=== PATIENT | female | born 1950 | race Caucasian/White ===

== ENCOUNTER 2017-01-26 18:42 | Observation (INO) ==
--- NOTE | 2017-01-26 19:59 | Emergency Department Note ---
Disposition Clinical Impression: Syncope Qualifiers: Syncope type: unspecified Qualified Code(s): R55 - Syncope and collapse Leukocytosis Qualifiers: Leukocytosis type: unspecified Qualified Code(s): D72.829 - Elevated white blood cell count, unspecified Disposition: Admitted As Inpatient Condition: Fair Seizure HPI - General Chief Complaint: ED Seizure Stated Complaint: seizure Time Seen by Provider: 01/26/17 18:59 Source: patient, EMS Mode of arrival: ambulatory Limitations: no limitations Nursing Notes Reviewed: Yes Vital Signs Reviewed: Yes - History of Present Illness HPI Narrative: 66-year-old female presents for evaluation of "possible seizure". Patient does have a history of left-sided breast cancer status post lumpectomy and lymph node dissection that is been remission since 2011. Family describes an episode where the patient is sitting at the family table. Patient became unresponsive slumping over in her chair with her head bobbing. No rhythmic shaking of the extremities. Symptoms lasted for approximately 45 minutes and the patient was brought to the ground. Patient did have an episode of urinary incontinence as well as vomiting and diaphoresis. Patient denies any specific prodrome prior to the episode. Denies any recent illnesses. No chest pain or short of breath. No abdominal pain nausea vomiting. Patient did have some episodes of confusion and was not aware of the event immediately upon awakening. No recent changes in medications or new medications. Pt Subjective Complaint: possible seizure Onset (ago): hour(s) Description of Episode: loss of consciousness, bladder incontinence - Related Data Home Medications Medication Instructions Recorded Confirmed Lisinopril [Zestril] 5 mg PO DAILY 01/26/17 01/26/17 Allergies Allergy/AdvReac Type Severity Reaction Status Date / Time No Known Allergies Allergy Verified 09/07/16 11:06 All systems ED: reviewed and negative except as stated. Constitutional: Reports: as per HPI. Denies: fever Eyes: Reports: as per HPI ENT ED: Reports: as per HPI Cardiovascular: Reports: as per HPI. Denies: chest pain, palpitations Respiratory: Reports: as per HPI. Denies: cough, dyspnea Gastrointestinal: Reports: as per HPI. Denies: abdominal pain, nausea, vomiting Genitourinary: Reports: as per HPI Musculoskeletal: Reports: as per HPI Integumentary: Reports: as per HPI Neurological: Reports: as per HPI. Denies: headache, weakness, numbness Psychiatric: Reports: as per HPI Endocrine: Reports: as per HPI Hematological/Lymphatic: Reports: as per HPI Allergic/Immunologic: Reports: as per HPI Past Medical History - Past Medical History Medical history: Reports: hypertension - Social History Smoking Status: Never smoker Smokeless Tobacco Status: No Alcohol use: Reports: none Physical Exam - General Limitations: no limitations General appearance: alert, in no apparent distress - Head Head exam: atraumatic, normocephalic, normal inspection - Eye Eye exam: Present: normal appearance, EOMI - ENT ENT exam: normal exam, normal oropharynx, mucous membranes moist - Expanded ENT Exam External ear exam: Present: normal external inspection Mouth exam: Present: tongue normal (No tongue biting) - Neck Neck exam: Present: normal inspection, trachea midline, other (Right supraclavicular fatty mass that the patient states is been stable and monitored) - Chest Chest inspection: Present: normal inspection - Respiratory Respiratory exam: Present: normal lung sounds bilaterally. Absent: respiratory distress - Cardiovascular Cardiovascular exam: Present: regular rate, normal rhythm - Abdominal Exam Abdominal exam: Present: soft, Non-Tender - Extremities Exam Extremities exam: Present: normal inspection. Absent: pedal edema - Expanded Upper Extremity Exam Shoulder exam: Present: normal inspection Arm exam: Present: normal inspection Elbow exam: Present: normal inspection Forearm/Wrist exam: Present: normal inspection Hand exam: Present: normal inspection Vascular exam: Normal: capillary refill, radial pulse - Expanded Lower Extremity Exam Hip/Pelvis exam: Present: normal inspection Upper leg exam: Present: normal inspection Knee exam: Present: normal inspection Lower leg exam: Present: normal inspection Ankle exam: Present: normal inspection - Back Exam Back exam: Present: normal inspection - Neurological Exam Neurological exam: Present: alert, oriented X3, CN II-XII intact - Expanded Neurological Exam Patient oriented to: Present: person, place, time Speech: Present: fluid speech Cranial nerves: EOM function (II, III, IV, ): Normal, facial sensation (V): Normal, facial palsy (VII): Normal, spinal accessory function (XI): Normal, tongue deviation (XII): Normal Cerebellar function: finger to nose: Normal Motor strength - LUE: 5/5 Motor strength - RUE: 5/5 Motor strength - LLE: 5/5 Motor strength - RLE: 5/5 - Psychiatric Psychiatric exam: Present: normal affect, normal mood - Skin Skin exam: Present: warm, dry, intact, normal color Course Course Narrative: Patient seen and examined. Patient's vitals are stable. Patient will get a syncope workup which includes a head CT, EKG, troponin basic lab work. Patient has a nonfocal neurologic exam. - Reevaluation(s) Reevaluation #1: Patient is resting comfortably in no acute distress. Patient's lab work reviewed. Awaiting patient's urinalysis. Time: 21:11 Reevaluation #2: Seen and examined. Patient is in no acute distress. Patient resting it comfortably. Update family on plan of care. Time: 22:09 Vital Signs Temperature 98.0 F 01/26/17 18:53 Pulse Rate 105 01/26/17 18:53 Respiratory Rate 18 01/26/17 18:53 Blood Pressure 145/89 01/26/17 18:53 O2 Sat by Pulse Oximetry 98 01/26/17 18:53 Temperature 97.8 F 01/27/17 01:39 Pulse Rate 85 01/27/17 01:39 Respiratory Rate 16 01/27/17 01:39 Blood Pressure 102/65 01/27/17 01:39 O2 Sat by Pulse Oximetry 95 01/27/17 02:00 Oxygen Delivery Oxygen Delivery Room Air Seizure - MDM Narrative Medical decision making narrative: 66-year-old female with a remote history of left-sided breast cancer in remission presents for evaluation of possible seizure. However after listening to the patient's family described the episode it appears that is more syncopal related. Occurred prior to arrival was sitting dinner table. Does note loss of consciousness and not responding for approximately 4-5 minutes with what appeared to be head-bobbing. No rhythmic jerking of the extremities bilateral. No tongue biting. No significant prodrome prior to. Patient denied chest pain or shortness of breath. Patient did have an episode of urinary incontinence as well as emesis following the incident with brief confusion about the episode following. Patient had basic lab work which included a CBC electrolytes troponin as well as a d-dimer. Patient labs do show leukocytosis which is likely stress-induced margination Patient's chest x-ray as well as head CT shows no acute abdomen. Patient's EKG is also non-acute. Patient will be admitted to the hospital service for further evaluation and monitoring. It appears more syncope related. Patient does not demonstrate any infectious symptoms that would be concerning for meningitis. No fevers. No headache. Patient's cranial nerves are grossly intact without nuchal rigidity or signs of meninges. Patient will be admitted to the telemetry floor. - Medical Records Medical records reviewed: Yes I reviewed the patient's medical records. - Lab Data Lab results reviewed: Yes I reviewed the patient's lab results. Result diagrams: 01/26/17 20:29 01/26/17 20:29 Lab Results 01/26/17 01/26/17 01/26/17 Range/Units 20:29 20:29 20:29 WBC 15.6 H (4.3-11.1) K/mcL RBC 4.54 (3.82-4.97) M/mcL Hgb 13.7 (11.5-15.4) g/dL Hct 42.3 (35.3-44.9) % MCV 93.2 (83.0-100.0) fL MCH 30.2 (28.0-33.3) pg MCHC 32.4 (31.6-35.5) g/dL RDW 12.8 (11.5-14.5) % Plt Count 238 (140-400) K/mcL MPV 10.7 (9.4-12.4) fL Immature Gran % 0.4 (0-4) % Seg Neutrophils % 84.0 % Lymphocytes % 8.4 % Monocytes % 6.6 % Eosinophils % 0.1 % Basophils % 0.5 % Neutrophils # 13.1 H (1.6-8.9) K/mcL Lymphocytes # 1.3 (0.6-4.6) K/mcL Monocytes # 1.0 (0.0-1.3) K/mcL Eosinophils # 0.0 (0.0-0.6) K/mcL Basophils # 0.1 (0.0-0.2) K/mcL D-Dimer (0-500) ng/mLFEU Sodium 140 (136-145) mEq/L Potassium 3.9 (3.5-4.5) mEq/L Chloride 100 (98-109) mEq/L Carbon Dioxide 31 H (19-29) mEq/L BUN 16 (7-20) mg/dL Creatinine 0.78 (0.57-1.11) mg/dL Est GFR ( Amer) > 60 (> 60) Est GFR (Non-Af Amer) > 60 (> 60) BUN/Creatinine Ratio 21 (6-26) Glucose 103 H (70-99) mg/dL Calculated Osmolality 291 (280-300) Calcium 9.9 (8.6-10.8) mg/dL Phosphorus 3.8 (2.3-4.7) mg/dL Magnesium 2.2 (1.6-2.6) mg/dL Total Bilirubin 0.4 (0.2-1.2) mg/dL AST 15 (5-34) Units/L ALT 14 (0-55) Units/L Alkaline Phosphatase 67 (38-126) Units/L Troponin I 0.00 (0-0.03) ng/mL Serum Total Protein 7.6 (6.0-8.3) g/dL Albumin 4.0 (3.5-5.0) g/dL Globulin 3.6 H (2.4-3.5) g/dL Albumin/Globulin Ratio 1.1 (1.1-2.2) Urine Color (Yellow) Urine Clarity (Clear) Urine pH (5.0-8.0) pH Units Ur Specific [place] (1.010-1.025) Urine Protein (Neg-Trace) mg/dL Urine Glucose (UA) (Normal) mg/dL Urine Ketones (Negative) mg/dL Urine Blood (Negative) Urine Nitrite (Negative) Urine Bilirubin (Negative) Urine Urobilinogen (Normal) mg/dL Ur Leukocyte Esterase (Negative) Urine Microscopic RBC (0-3) per hpf Urine Microscopic WBC (0-3) per hpf Ur Squamous Epith Cells (None-Few) per lpf Urine Bacteria (None-Few) per hpf Hyaline Casts (None-Few) per lpf Urine Opiates Screen (Rstrzd=413) ng/mL Ur Barbiturates Screen (Btawcp=341) ng/mL Ur Phencyclidine Scrn (Cutoff=25) ng/mL Ur Amphetamines Screen (Yqhsoc=2402) ng/mL U Benzodiazepines Scrn (Ztlmbk=330) ng/mL Urine Cocaine Screen (Cutoff= 300) ng/mL U Marijuana (THC) Screen (Cutoff = 50) ng/mL 01/26/17 01/26/17 01/26/17 Range/Units 20:29 21:17 21:17 WBC (4.3-11.1) K/mcL RBC (3.82-4.97) M/mcL Hgb (11.5-15.4) g/dL Hct (35.3-44.9) % MCV (83.0-100.0) fL MCH (28.0-33.3) pg MCHC (31.6-35.5) g/dL RDW (11.5-14.5) % Plt Count (140-400) K/mcL MPV (9.4-12.4) fL Immature Gran % (0-4) % Seg Neutrophils % % Lymphocytes % % Monocytes % % Eosinophils % % Basophils % % Neutrophils # (1.6-8.9) K/mcL Lymphocytes # (0.6-4.6) K/mcL Monocytes # (0.0-1.3) K/mcL Eosinophils # (0.0-0.6) K/mcL Basophils # (0.0-0.2) K/mcL D-Dimer 1296 H (0-500) ng/mLFEU Sodium (136-145) mEq/L Potassium (3.5-4.5) mEq/L Chloride (98-109) mEq/L Carbon Dioxide (19-29) mEq/L BUN (7-20) mg/dL Creatinine (0.57-1.11) mg/dL Est GFR ( Amer) (> 60) Est GFR (Non-Af Amer) (> 60) BUN/Creatinine Ratio (6-26) Glucose (70-99) mg/dL Calculated Osmolality (280-300) Calcium (8.6-10.8) mg/dL Phosphorus (2.3-4.7) mg/dL Magnesium (1.6-2.6) mg/dL Total Bilirubin (0.2-1.2) mg/dL AST (5-34) Units/L ALT (0-55) Units/L Alkaline Phosphatase (38-126) Units/L Troponin I (0-0.03) ng/mL Serum Total Protein (6.0-8.3) g/dL Albumin (3.5-5.0) g/dL Globulin (2.4-3.5) g/dL Albumin/Globulin Ratio (1.1-2.2) Urine Color Yellow (Yellow) Urine Clarity Cloudy A (Clear) Urine pH 6.5 (5.0-8.0) pH Units Ur Specific [place] 1.028 H (1.010-1.025) Urine Protein 30 H (Neg-Trace) mg/dL Urine Glucose (UA) Normal (Normal) mg/dL Urine Ketones Trace H (Negative) mg/dL Urine Blood Negative (Negative) Urine Nitrite Negative (Negative) Urine Bilirubin Small H (Negative) Urine Urobilinogen Normal (Normal) mg/dL Ur Leukocyte Esterase Small H (Negative) Urine Microscopic RBC 0-3 (0-3) per hpf Urine Microscopic WBC 5-15 H (0-3) per hpf Ur Squamous Epith Cells Many H (None-Few) per lpf Urine Bacteria None Seen (None-Few) per hpf Hyaline Casts None Seen (None-Few) per lpf Urine Opiates Screen Negative (Tqvayu=871) ng/mL Ur Barbiturates Screen Negative (Xoebgv=772) ng/mL Ur Phencyclidine Scrn Negative (Cutoff=25) ng/mL Ur Amphetamines Screen Negative (Pnjvjg=3043) ng/mL U Benzodiazepines Scrn Negative (Xatzjo=222) ng/mL Urine Cocaine Screen Negative (Cutoff= 300) ng/mL U Marijuana (THC) Screen Positive H (Cutoff = 50) ng/mL - Radiology Data Radiology results reviewed: Yes I reviewed the patient's radiology results. Chest X-Ray 01/26/17 19:56 IMPRESSION: No acute process. D/ / Armand Bridges MD / Armand Bridges MD Interpreting Provider: Armand Bridges MD Head CT 01/26/17 19:57 IMPRESSION: No acute intracranial abnormality. D/ / Armand Bridges MD / Armand Bridges MD Interpreting Provider: Armand Bridges MD - EKG Data EKG attestation: Yes I reviewed and interpreted this EKG. EKG shows normal: sinus rhythm Rate: normal Rhythm: NSR [place]/QRS: normal Q waves: II, III, aVF QTc: other (388) Interpretation: no acute changes S.B.A.R. - S.B.A.R. Situation: Demographics Background: Presenting Complaint Assessment: Vital Signs, Course and respsone to treatment, Patient/Family Expectation Recommendation: Barrier(s) to disposition, Recommendation based on pending studies, treatments, or consults S.B.A.R. Report Given to: Dr. Jesus Kate Repor Time: 23:16 Attestation Statement - Attestation Attestation: I, Sim Vanessa, examined this patient and my medical decision-making was reviewed with the POLICY VALUE CALCULATOR/PA/Advanced Practice Nurse/Resident Physician. I agree with the documented findings, disposition and treatment plan as described except to the extent set forth below. Cc-year-old female presents for concerns for evaluation of possible seizure versus syncope. Patient had finished eating and was sitting at the table when she suddenly started to afford and was unresponsive per the family. Family states they laid her down to the ground and she did not hit her head. No other trauma in the recent past. Patient denies changing her medications. Patient denies chest pain, shortness of breath, palpitations. Is unable to provide a history regarding what had happened. Initial troponin negative. D-dimer elevated. CTA of the chest negative for PE or other pathology. EKG showed normal sinus rhythm with rate of 91 without evidence of STEMI. Patient will be admitted to the hospital for further evaluation of possible syncope versus seizure
[2017-01-26 20:41] LABS: Basophils # 0.1 K/mcL (0.0-0.2); Basophils % 0.5 %; Eosinophils % 0.1 %; Hematocrit 42.3 % (35.3-44.9); Hemoglobin 13.7 g/dL (11.5-15.4); Immature Granulocytes % 0.4 % (0-4); Lymphocytes # 1.3 K/mcL (0.6-4.6); Lymphocytes % 8.4 %; Mean Corpuscular HGB Conc 32.4 g/dL (31.6-35.5); Mean Corpuscular Hemoglobin 30.2 pg (28.0-33.3); Mean Corpuscular Volume 93.2 fL (83.0-100.0); Mean Platelet Volume 10.7 fL (9.4-12.4); Monocytes % 6.6 %; Neutrophils # 13.1 K/mcL (1.6-8.9); Platelet Count 238 K/mcL (140-400); Red Blood Count 4.54 M/mcL (3.82-4.97); Red Cell Distribution Width 12.8 % (11.5-14.5)
[2017-01-26 20:56] LABS: Alanine Aminotransferase 14 Units/L (0-55); Albumin/Globulin Ratio 1.1 (1.1-2.2); Alkaline Phosphatase 67 Units/L (38-126); Aspartate Amino Transferase 15 Units/L (5-34); BUN/Creatinine Ratio 21 (6-26); Bilirubin,Total 0.4 mg/dL (0.2-1.2); Blood Urea Nitrogen 16 mg/dL (7-20); Calcium 9.9 mg/dL (8.6-10.8); Carbon Dioxide 31 mEq/L (19-29); Chloride 100 mEq/L (98-109); Globulin 3.6 g/dL (2.4-3.5); Glucose 103 mg/dL (70-99); Magnesium 2.2 mg/dL (1.6-2.6); Osmolality,Calculated 291 (280-300); Phosphorous 3.8 mg/dL (2.3-4.7); Potassium 3.9 mEq/L (3.5-4.5); Sodium 140 mEq/L (136-145); Total Protein 7.6 g/dL (6.0-8.3); eGFR For African Americans > 60 (> 60); eGFR For Non-African Americans > 60 (> 60)
[2017-01-26 21:28] LABS: Bilirubin,Urine Small (Negative); Blood,Urine Negative (Negative); Clarity,Urine Cloudy (Clear); Color,Urine Yellow (Yellow); Glucose,Urine (UA) Normal (Normal); Ketones,Urine Trace mg/dL (Negative); Leukocyte Esterase,Urine Small (Negative); Nitrite,Urine Negative (Negative); PH,Urine 6.5 pH Units (5.0-8.0); Protein,Urine 30 mg/dL (Neg-Trace); Specific Gravity,Urine 1.028 (1.010-1.025); Urobilinogen,Urine Normal (Normal)
[2017-01-26 21:30] LABS: Amphetamine Screen,Urine Negative ng/mL (Cutoff=1000); Barbiturate Screen,Urine Negative ng/mL (Cutoff=200); Benzodiazepines Screen,Urine Negative ng/mL (Cutoff=200); Cannabinoid Screen,Urine Positive ng/mL (Cutoff = 50); Cocaine Screen,Urine Negative ng/mL (Cutoff= 300); Opiate Screen,Urine Negative ng/mL (Cutoff=300); Phencyclidine Screen,Urine Negative ng/mL (Cutoff=25)
[2017-01-26 21:32] LABS: Bacteria,Urine None Seen per hpf (None-Few); Hyaline Casts,Urine None Seen per lpf (None-Few); Squamous Epithelial Cell,Urine Many per lpf (None-Few)
[2017-01-26 21:43] LABS: RBC,Urine 0-3 per hpf (0-3)
--- NOTE | 2017-01-27 01:24 | Internal Med History&Physical ---
Date of Encounter: 01/27/17 Time of Encounter: 01:24 Assessment and Plan (1) Syncope Current visit: Yes Status: Acute pt with no prior history of seizure, CVA or family history of seizure comes in with signs and symptoms concerning for seizure, other differentials could be an arrhythmia vs symptomatic heart block, head CT was unremarkable, EKG was NSR with no blocks or conduction delays, we will get an EEG, telemonitor and get neurology to weigh in, meanwhile we will observe fall, aspirations, and seizure precautions Qualifiers: Syncope type: unspecified Qualified Code(s): R55 - Syncope and collapse (2) HTN (hypertension) Current visit: Yes Status: Chronic she is controlled on lisinopril at home which we will continue with BP monitoring Qualifiers: Hypertension type: essential hypertension Qualified Code(s): I10 - Essential (primary) hypertension Internal Medicine - H&P: HPI Chief complaint: passed out Admitted From: Emergency Dept Plans for Post Hospital Care: Home History of present illness: Ms. Kothari is a 66 year old female with no prior history of CVA or seizure or any heart problems was brought in after passing out at home. She was in her usual state of health until she slumped over in her chair on 01/26/17 and was out for about 4-5 minutes, was unresponsive at that time. She was later laid down on the floor and the EMS was called and she was brought here. She denies any prodrome, no preceding headache, nausea or vomiting, diaphoresis, chest pain or trauma. She reports that after she came to she could not recall events during that period, she was also unaware of events during that period. She however felt nauseous, was diaphoretic and warm after she regained consciousness. There was no report of twitching or stool incontinence but she had urinary incontinence. Past Med Surg Social Fam HX - Past Medical History Medical history: cancer (right breast s/p surgery and radiation in 2012), hypertension - Past Surgical History Surgical History: breast surgery (right lumpectomy for breast cancer) - Social History Smoking Status: Former smoker Packs per day: smoked 1ppd for about 10 years and quit about 5 years ago Smokeless Tobacco Status: No Alcohol use: none Current living situation: Home - Independent Activity Level: Independent ambulation Additional social history: she is and lives at home with her family - Additional Family History Additional family history: father in his later 30's of a massive [place], he also had HTN, mother is also , she had HTN and myasthenia gravis, no family history of seizures Internal Medicine - H&P: Meds Lisinopril [Zestril] 5 mg PO DAILY 01/26/17 [History] Allergies No Known Allergies Allergy (Verified 09/07/16 11:06) All Systems PM: A 10-system review of systems was performed and is negative for pertinent findings except as documented above in the HPI. - Constitutional Vitals: Temp Pulse Resp BP Pulse Ox 98.0 F 97 18 0/0 98 01/26/17 18:53 01/26/17 21:19 01/27/17 00:02 01/27/17 00:02 01/26/17 21:19 PHYSICAL EXAMINATION: GENERAL: Adult female, lying in bed with no sign of distress, awake and alert, makes good eye contact HEENT: NC/AT, EOMI, PERRLA, anicteric sclera, normal conjunctiva, supple, clear nares, moist mucous membranes, clear oropharynx, central uvula RESP: no chest wall tenderness with palpation, lungs are clear to auscultation bilaterally, good AE bilaterally, No crackles or wheeze CARDIO: normal heart sounds, no murmurs, no JVD, no ankle edema GI: Soft, full, no tenderness, no organomegaly felt, normal bowel sounds heard MUSCULOSKELETAL: grossly normal movements bilaterally, no deformities noted, no calf tenderness NEUROLOGIC: CN 2-12 intact grossly. No motor/sensory deficit appreciated, PSYCHIATRY: AAO x 3, SKIN: no rash noted Internal Med - H&P Results - Labs CBC & Chem 7: 01/26/17 20:29 01/26/17 20:29 - EKG Data -: EKG Interpreted by Myself EKG shows normal: sinus rhythm Rate: normal - EKG Data Prior EKG available for review: no - Diagnostic Studies Chest x-ray Status: image reviewed by me CT scan - head Status: image reviewed by me CT scan - chest Status: image reviewed by me
[2017-01-27] MEDS ORDERED: Naloxone 0.4 MG/ML INJ IVP PRN (01:57)
--- NOTE | 2017-01-27 09:40 | Neurology - Consult Note ---
<Grant Patel - Last Filed: 01/27/17 09:49> Date of Encounter: 01/27/17 Time of Encounter: 09:20 Assessment and Plan (1) Syncope Current Visit: Yes Status: Acute No previous history of seizures. No muscle contractions present during described episode. CT of the head was negative for acute intracranial abnormality. Agree with EEG. Positive for marijuana. Differential includes arrhythmia, dehydration, vasovagal, unlikely seizure. Elevated WBC. No obvious signs of infection at this time. Possible stress reaction. The patient has no nuchal rigidity and denies headaches. Qualifiers: Syncope type: unspecified Qualified Code(s): R55 - Syncope and collapse History of Present Illness Chief complaint: Unresponsive episode HPI: Ms. Kothari is a 66 year old female with PMH of breast cancer and hypertension who reported to [facility] after she had an unresponsive episode yesterday evening around 6PM. The who was present in the room provides some additional history. He states that they had just eaten dinner and were sitting around the living room when his stopped responding to him. Her eyes were open and she slumped down into her chair. Her head was slowly moving from side to side. There was no contractions or jerking movements present. He lowered her out of her chair and onto the floor. She then lost bladder control. After 4-5 minutes she was responding again, but became nauseous and vomited X1. She denies ever having anything like this happen before. She denies any history of seizures in the past. She denies starting any new medications or supplements. She was positive for marijuana upon toxicology in the ER, but she states she is a chronic user and has not changed suppliers or any of her usage recently. Further workup demonstrated NSR on EKG without any arrhythmias. CT of the head demonstrated no acute intracranial abnormality. CTA of the chest was negative for PE. The patient denied any symptoms prior to her episode of unresponsiveness. She cannot recall the episode. She denies chest pain, fever, headache, neck pain, cough, shortness of breath, dysuria, change in urinary frequency, and diarrhea. She additionally denies any skin rashes or sores. Past Med Surg Social Fam HX - Past Medical History Medical history: cancer (right breast s/p surgery and radiation in 2011), hypertension Psychiatric history: no psych history - Past Surgical History Surgical History: breast surgery (right lumpectomy for breast cancer) - Social History Smoking Status: Former smoker Packs per day: smoked 1ppd for about 10 years and quit about 5 years ago Smokeless Tobacco Status: No Alcohol use: none Drug use: none Medications and Allergies Lisinopril [Zestril] 5 mg PO DAILY 01/26/17 [History] Allergies No Known Allergies Allergy (Verified 09/07/16 11:06) All Systems: A 10-system review of systems was performed and is negative for pertinent findings except as documented above in the HPI. Physical Examination - Vital Signs Vital Signs: Initial Vital Signs Temp Pulse Resp BP Pulse Ox 98.0 F 105 18 145/89 98 01/26/17 18:53 01/26/17 18:53 01/26/17 18:53 01/26/17 18:53 01/26/17 18:53 - Constitutional General appearance: comfortable - Neurologic Sensorimotor examination: intact Detailed motor examination: grossly full strength in all extremities, full strength in all major muscle groups Detailed sensory examination: intact Reflexes: Biceps: 2+, Triceps: 2+, Patella: 2+, Achilles: 2+ Mental Status Examination: awake, alert, oriented to person, oriented to place, oriented to time, follows commands appropriately, answers questions appropriately, makes eye contact Cranial nerve examination: PERRL, EOMI, visual ortiz intact, corneal reflexes brisk symmetrically, sensory to face intact, mastication intact, no facial asymmetry is present, no dysarthria, hearing is intact symmetrically, soft palate elevates bilaterally upon phonation, flexes SCM and trapezius muscles symmetrically with full power, tongue protrudes midline, no atrophy or facial fasiculations present Cerebellar examination: no dysmetria, performs finger to nose and heel to meyer symmetrically without ataxia, no gait ataxia, no difficulty with rapid alternating movements Results - Laboratory Findings CBC and BMP: 01/26/17 20:29 01/26/17 20:29 Abnormal lab findings: Abnormal lab results WBC 15.6 K/mcL (4.3-11.1) H 01/26/17 20:29 Neutrophils # 13.1 K/mcL (1.6-8.9) H 01/26/17 20:29 D-Dimer 1296 ng/mLFEU (0-500) H 01/26/17 20:29 Carbon Dioxide 31 mEq/L (19-29) H 01/26/17 20:29 Glucose 103 mg/dL (70-99) H 01/26/17 20:29 Globulin 3.6 g/dL (2.4-3.5) H 01/26/17 20:29 Urine Clarity Cloudy (Clear) A 01/26/17 21:17 Ur Specific [place] 1.028 (1.010-1.025) H 01/26/17 21:17 Urine Protein 30 mg/dL (Neg-Trace) H 01/26/17 21: Urine Ketones Trace mg/dL (Negative) H 01/26/17 21:17 Urine Bilirubin Small (Negative) H 01/26/17 21: Ur Leukocyte Esterase Small (Negative) H 01/26/17 21: Urine Microscopic WBC 5-15 per hpf (0-3) H 01/26/17 21:17 Ur Squamous Epith Cells Many per lpf (None-Few) H 01/26/17 21: U Marijuana (THC) Screen Positive ng/mL (Cutoff = 50) H 01/26/17 21:17 Consult Discharge Plan - Plan Referrals: Cyndi Guy, INSTALLATION COORDINATOR [Primary Care Provider] - <lEliot Meek - Last Filed: 01/27/17 16:03> Date of Encounter: 01/27/17 Assessment and Plan (1) Syncope Current Visit: Yes Status: Acute I agree as stated above. Patient's neurologic examination and neuroimaging are completely negative. In lieu of the abrupt onset of the event, absence of generalized tonic-clonic activity, and associated vomiting. I would suspect he would do dealing with either a vasovagal event or a primary cardiogenic event. At this point I think we can forego the EEG. I will consider cardiac evaluation. You may discharge her at your discretion. Qualifiers: Syncope type: unspecified Qualified Code(s): R55 - Syncope and collapse History of Present Illness HPI: Ms. Kothari is a 66 year old female who is seen for neurologic consultation secondary to an episode of loss of consciousness. The patient was seen and examined independently. Case was discussed with Dr. Patel I agree with his account as stated above. All Systems: A 10-system review of systems was performed and is negative for pertinent findings except as documented above in the HPI. Review of Systems: Review of systems is consistent with history of present illness otherwise negative. Physical Examination - Vital Signs Vital Signs: Initial Vital Signs Temp Pulse Resp BP Pulse Ox 98.0 F 105 18 145/89 98 01/26/17 18:53 01/26/17 18:53 01/26/17 18:53 01/26/17 18:53 01/26/17 18:53 - Neurologic Detailed motor examination: full strength in all major muscle groups Motor examination - right side: 5: deltoids, biceps, triceps, wrist flexion, wrist extension, business machine operator, hip flexors, tibialis Anterior, quadriceps, toe extension (EHL), plantarflexion Motor examination - left side: 55: deltoids, biceps, triceps, wrist flexion, wrist extension, hip flexors, business machine operator, quadriceps, tibialis Anterior, toe extension (EHL), plantarflexion Mental Status Examination: awake, alert, oriented to person, oriented to place, oriented to time, follows commands appropriately, answers questions appropriately, no agnosia, no aphasia, no aproxia Cranial nerve examination: PERRL, EOMI, visual ortiz intact, corneal reflexes brisk symmetrically, sensory to face intact, mastication intact, no facial asymmetry is present, no dysarthria, hearing is intact symmetrically, soft palate elevates bilaterally upon phonation, gag reflex intact, flexes SCM and trapezius muscles symmetrically with full power, tongue protrudes midline, no atrophy or facial fasiculations present Cerebellar examination: no dysmetria, performs finger to nose and heel to meyer symmetrically without ataxia, no gait ataxia, no truncal ataxia, no difficulty with rapid alternating movements Results - Laboratory Findings CBC and BMP: 01/26/17 20:29 01/26/17 20:29 Abnormal lab findings: Abnormal lab results WBC 15.6 K/mcL (4.3-11.1) H 01/26/17 20:29 Neutrophils # 13.1 K/mcL (1.6-8.9) H 01/26/17 20:29 D-Dimer 1296 ng/mLFEU (0-500) H 01/26/17 20:29 Carbon Dioxide 31 mEq/L (19-29) H 01/26/17 20:29 Glucose 103 mg/dL (70-99) H 01/26/17 20:29 Globulin 3.6 g/dL (2.4-3.5) H 01/26/17 20:29 Urine Clarity Cloudy (Clear) A 01/26/17 21:17 Ur Specific [place] 1.028 (1.010-1.025) H 01/26/17 21:17 Urine Protein 30 mg/dL (Neg-Trace) H 01/26/17 21: Urine Ketones Trace mg/dL (Negative) H 01/26/17 21:17 Urine Bilirubin Small (Negative) H 01/26/17 21:17 Ur Leukocyte Esterase Small (Negative) H 01/26/17 21:17 Urine Microscopic WBC 5-15 per hpf (0-3) H 01/26/17 21:17 Ur Squamous Epith Cells Many per lpf (None-Few) H 01/26/17 21:17 U Marijuana (THC) Screen Positive ng/mL (Cutoff = 50) H 01/26/17 21:17
[2017-01-27 15:24] VITALS: BP 140/83
--- NOTE | 2017-01-27 16:33 | ECHO - Doppler Report ---
Echo with Saline Contrast Name: Asia Kothari Date of Study: 01/27/2017 Date: 1950 Ht: 65.0 in Medical Record#: [id number] Age: 66 Wt: 154.0 lb Gender: Female BSA: 1.77 Order #: [id number] Location: [facility] Room #: 3B39 Reading Physician: Armand Linn DO, [facility] Correctional Officer Chief: Alli Jones RN Ordering Physician: Moustapha Tripathi MD Primary Physician: Cyndi Guy CNP Indications: Syncope Impressions: LVEF 65-70%. Normal LV chamber size and function. Mild concentric left ventricular hypertrophy. Mild left ventricular diastolic dysfunction. Normal right ventricular structure and function. Moderately dilated left atrium. Moderate mitral stenosis suggested by Doppler (MG 7 mmhg, HR 94). Visually, there is no significant mitral stenosis. No evidence of pulmonary hypertension. Left Ventricular Wall Motion: Rest Echo Findings All wall segments showed normal motion. Findings: Study Quality * Technically adequate exam. ECG Findings * Normal sinus rhythm. Left Ventricle * LVEF 65-70%. * Normal LV chamber size and function. * Mild concentric left ventricular hypertrophy. * Mild left ventricular diastolic dysfunction. Right Ventricle * Normal right ventricular structure and function. Left Atrium * Moderately dilated left atrium. Right Atrium * Mildly dilated right atrium. Interatrial Septum * No evidence of PFO with agitated saline contrast. Aortic Valve * Trileaflet aortic valve. * Focal calcification of the left coronary cusp. * No aortic stenosis. * No aortic regurgitation. Mitral Valve * Mild posterior mitral annular calcification. Mildly thickened mitral valve. * Trace mitral regurgitation. * Moderate mitral stenosis suggested by Doppler (MG 7 mmhg, HR 94). Visually, there is no significant mitral stenosis. Tricuspid Valve * Normal tricuspid valve structure and function. * Trace tricuspid regurgitation. * No evidence of pulmonary hypertension. Pulmonic Valve * Pulmonic valve is not well visualized. * No pulmonic regurgitation. Aorta * Normally sized aortic root. Pericardium * The pericardium appears normal. IVC * Normal IVC dimensions and inspiratory collapse. Pulmonary Artery * Normal visualized portions of the main pulmonary artery. History Hypertension Years 20 Packs 1 Family History of CAD Contrast: Agitated saline 20 ml. Measurements: BP: 142/ 83 2D Normal Values RVIDd: 3.10 cm <2.7 cm IVSd: 1.20 cm 0.6 - 1.0 cm LVIDd: 3.20 cm 3.7 - 5.6 cm LVPWd: 1.20 cm 0.6 - 1.1 cm LVIDs: 2.40 cm 1.5 - 3.6 cm LA: 3.30 cm 2.0 - 4.0cm %FS: 25.00 cm >25 % LVOT Diam: 2.00 cm LA volume: 66 Mitral Valve Peak Velocity 1.96 m/sec Mean Velocity:1.23 m/sec Peak Grad:15.00 mmHg Mean Grad:7.00 mmHg Peak E:1.13 m/sec Peak A:1.56 m/sec E/A Ratio:0.7 Peak E' Lat Samuel:7.21 cm/s Peak E' Med Samuel:6.24 cm/s E/E' Lat Ratio:15.7 E/E' Med Ratio:18.1 Tricuspid Valve TV Regurg Peak Grad: 28.00mmHg TV Regurg Peak Samuel: 2.65m/sec Updated by Armand Linn DO, FACIris, SEE, MIGUE on 01/27/2017 4:28:06 PM electronically signed on 01/27/2017 4:29:10 PM with status of Final Wall Motion S[place]: 1=Normal, 2=Hypokinesis, 3=Akinesis, 4=Dyskinesis, 5=Aneurysmal, 6=Hyperkinetic, X=Not Visualized (Blank)=Missing
--- NOTE | 2017-02-01 17:05 | Electrocardiograph Report ---
[facility] Test Date: 2017-01-26 Pat Name: Asia Kothari Department: 102 Room: 3B39 Gender: F Extrusion Bender: Harry : 1950 Requested By: Lacho Alvarez Order Number: [id number] Reading MD: Fran Martinez MD Measurements Intervals [place] Rate: 91 P: 50 AR: 177 QRS: 22 QRSD: 77 T: 35 QT: 340 QTc: 388 Interpretive Statements SINUS RHYTHM Electronically Signed On 02-01-2017 17:03:35 EDT by Fran Martinez MD
== END 2017-01-27 20:06 | disposition left against medical advice (07) ==
LOC: EMEROO 18:42 → 3BNU 18:42 → SUATTDRO 23:40 → 3BNU 01-27 00:23
PROVIDERS: ADMIT Internal Medicine; ATTEND Internal Medicine